=== PATIENT | male | born 1960 | race Caucasian/White ===

== ENCOUNTER 2020-06-01 09:17 | Outpatient (CLI) | payer OTHER ==
--- NOTE | 2020-06-01 12:00 | XRAY Report ---
PROCEDURE: Knee 3 View RT INDICATIONS: ACUTE ON CHRONIC R KNEE PAIN,NO TRUAMA TECHNIQUE: 3 views of the right knee(s) were acquired. COMPARISON: None. FINDINGS: Bones: No fractures or dislocations. No suspicious bony lesions. There is a slight degree of narro wing of the medial compartment joint width. Soft tissues: No joint effusion. No suspicious soft tissue calcifications. IMPRESSION: Mild medial compartment degenerative knee joint osteoarthritis. No trauma found. Reviewed by: Phoenix Burr MD on 06/01/2020 11:59 AM PST Approved by: Phoenix Burr MD on 06/01/2020 11:59 AM PST Station ID: [id number]
== END 2020-06-01 09:18 | disposition home or self-care (01) ==
LOC: DI 09:17
PROVIDERS: ATTEND Family Medicine
DX: M17.11 Unilateral primary osteoarthritis, right knee (principal)

== ENCOUNTER 2021-03-18 14:54 | Outpatient (CLI) | payer MEDICARE | END 2021-03-18 14:55 | disposition short-term general hospital (02) | LOC: EMS 14:54 | DX: R10.9 Unspecified abdominal pain (principal); R11.2 Nausea with vomiting, unspecified; R19.7 Diarrhea, unspecified; R61 Generalized hyperhidrosis | CPT/HCPCS: A0425; A0427 ==

== ENCOUNTER 2023-03-08 13:16 | Outpatient (CLI) | payer OTHER, MEDICARE | END 2023-03-08 13:17 | disposition short-term general hospital (02) | LOC: EMS 13:16 | DX: S10.93XA Contusion of unspecified part of neck, initial encounter (principal); R07.1 Chest pain on breathing; V89.2XXA Person injured in unspecified motor-vehicle accident, traffic, initial encounter; Y93.89 Activity, other specified; Y92.414 Local residential or business street as the place of occurrence of the external cause | CPT/HCPCS: A0425; A0429 ==